=== PATIENT | male | born 1990 | race Native Hawaiian/Other Pacific Islander ===

== ENCOUNTER 2022-01-08 10:16 | Emergency (ER) | payer OTHER ==
[~2022-01-08] VITALS: Ht 172.7 cm; Wt 108.0 kg
[2022-01-08] MEDS ORDERED: LIDOCAINE 1% 10 ML VIAL SQ ONE (12:45)
[2022-01-08 13:30] VITALS: BP 119/77
[2022-01-08] MEDS ORDERED: PERTUSS(ACELL),DIPH,TET VAC/PF 0.5 ML SYRINGE IM. ONE (13:30)
== END 2022-01-08 13:49 | disposition home or self-care (01) ==
LOC: EMS 10:16
DX: S61.211A Laceration without foreign body of left index finger without damage to nail, initial encounter (principal); W20.8XXA Other cause of strike by thrown, projected or falling object, initial encounter; Y93.89 Activity, other specified; Y92.89 Other specified places as the place of occurrence of the external cause; Y99.0 Civilian activity done for income or pay
CPT/HCPCS: 12001; 90471; 90715; 99283; J3490